=== PATIENT | female | born 1945 | race Caucasian/White ===

== ENCOUNTER 2020-08-18 12:29 | Outpatient (CLI) | payer MEDICARE ==
[2020-08-18 23:52] LABS: SARS-CoV-2 PCR by NAA Not Detected (NotDetected)
== END 2020-08-18 12:30 | disposition home or self-care (01) ==
LOC: CSHLAB 12:29
PROVIDERS: ATTEND Internal Medicine Critical Care Medicine
DX: Z20.822 Contact with and (suspected) exposure to COVID-19 (principal); J45.909 Unspecified asthma, uncomplicated
CPT/HCPCS: 87635; U0003; U0005

== ENCOUNTER 2020-08-23 14:09 | Outpatient (CLI) | payer MEDICARE | END 2020-08-23 14:10 | disposition home or self-care (01) | LOC: CSHCP 14:09 | PROVIDERS: ATTEND Internal Medicine Critical Care Medicine | DX: J45.909 Unspecified asthma, uncomplicated (principal); R94.2 Abnormal results of pulmonary function studies | CPT/HCPCS: 94060; 94726; 94729; 94760 ==